=== PATIENT | male | born 1975 ===

== ENCOUNTER → 2017-04-11 | Outpatient (REF) | payer OTHER | LOC: M LAB REF 19:41 | PROVIDERS: ATTEND Physician Assistant | DX: J02.9 Acute pharyngitis, unspecified (principal) ==

== ENCOUNTER → 2019-03-30 | Outpatient (CLI) | payer OTHER ==
--- NOTE | 2019-03-30 14:16 | REP ---
RIGHT HAND, FOUR VIEWS: HISTORY: 3rd metacarpal pain. There is no acute fracture or dislocation. The joint spaces are normal in appearance. IMPRESSION: There is no acute fracture or dislocation. Electronically Signed by Addy Mejia MD 03/30/2019 02:18 P
== END ==
LOC: M WUC 13:42
PROVIDERS: ATTEND Physician Assistant
DX: M79.644 Pain in right finger(s) (principal)